=== PATIENT | female | born 2000 | race Caucasian/White ===

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

== ENCOUNTER 2019-06-25 14:20 | Emergency (ER) | payer OTHER ==
[~2019-06-25] VITALS: Ht 160 cm; Wt 63.0 kg
== END 2019-06-25 14:43 | disposition left against medical advice (07) ==
LOC: ED 14:20
DX: T39.1X1A Poisoning by 4-Aminophenol derivatives, accidental (unintentional), initial encounter (principal); R45.83 Excessive crying of child, adolescent or adult

== ENCOUNTER 2019-07-03 13:00 | Emergency (ER) | payer OTHER ==
[~2019-07-03] VITALS: Wt 54.4 kg
--- NOTE | ~2019-07-03 | EKG ---
[place], [place] ELECTROCARDIOGRAM REPORT NAME: DAYSI GUZMAN UNIT #: [id number] ROOM: DOCTOR: EPIPHANY DRAFT REPORT BIRTHDATE: [birth year] [facility] Test Date: 2019-07-03 Test Time: 13:18:56 Pat Name: DAYSI GUZMAN Department: Room: Gender: F [employer]: : 2000 Requested By: DANIEL JOHNSON Order Number: [id number] Reading MD: Ancelmo Miller MD Measurements Intervals Longs Rate: 89 P: 73 TN: 151 QRS: 36 QRSD: 113 T: 31 QT: 422 QTc: 514 Interpretive Statements Sinus rhythm Borderline intraventricular conduction delay Borderline ST depression, diffuse leads Prolonged QT interval No previous ECG available for comparison Electronically Signed On 07-04-2019 15:46:31 PDT by Ancelmo Miller MD CM:EKGRPT:ELECTROCARDIOGRAM REPORT [id number] DANIEL JOHNSON MD EPIPHANY DRAFT REPORT DANIEL JOHNSON MD
[2019-07-03 13:22] LABS: HEMATOCRIT 31.6 % (37.0-47.0); HEMOGLOBIN 9.5 g/dl (12.0-16.0); MEAN CELL VOLUME 93.2 fl (81.0-99.0); MEAN CORPUSCULAR HGB CONC 30.1 g/dl (33.0-37.0); NUCLEATED RED BLOOD CELL 0.1 10*3/uL (0.0-0.0); NUCLEATED RED BLOOD CELL 0.4 % (0.0-0.0); PLATELET COUNT AUTOMATED 326 10*3/uL (130-400); RED BLOOD COUNT 3.39 10*6/uL (4.10-5.10); RED CELL DISTRI WIDTH 13.9 % (0-14.5)
[2019-07-03 13:36] LABS: ACT PARTIAL THROMBO TIME 41.6 SECONDS (20.0-32.1); INTERNATIONAL NORM RATIO 1.2 (2.0-3.5)
[2019-07-03 13:39] LABS: ALBUMIN 2.2 gm/dl (3.1-4.5); ALKALINE PHOSPHATASE 84 U/L (45-117); BUN 10 mg/dl (7-24); CHLORIDE 108 mmol/L (98-107); CPK 455 U/L (26-192); CREATININE 1.16 mg/dL (0.55-1.02); POTASSIUM 4.1 mmol/L (3.5-5.1); SODIUM 143 mmol/L (136-145); TOTAL PROTEIN 6.1 gm/dL (6.4-8.2)
[2019-07-03 13:50] LABS: PLATELET SUFFICIENCY NORMAL (NORMAL); TOTAL CELLS COUNTED 100 #CELLS
[2019-07-03 13:54] LABS: TROPONIN I 0.028 ng/ml (<0.045)
[2019-07-03 14:41] LABS: ABG O2 SATURATION 98.3 % (95-97); ARTERIAL BLOOD GAS PCO2 42.1 mmHg (35-45)
[2019-07-03 14:42] LABS: ETHYL ALCOHOL < 3.0 mg/dl (<3); SGOT/AST 9333 IU/L (3-35); SGPT/ALT 5684 U/L (12-78)
[2019-07-03 14:42] LABS: ABG BASE EXCESS -20.6 mmol/L (-2.0-2.0); ARTERIAL BLOOD GAS PH 6.991 (7.35-7.45)
[2019-07-03 14:50] LABS: BILIRUBIN NEGATIVE (NEGATIVE); BLOOD 2+ (NEGATIVE); CLARITY SL CLOUDY (CLEAR); COLOR YELLOW (YELLOW); GLUCOSE 1+ (NEGATIVE); KETONE NEGATIVE (NEGATIVE); LEUKO ESTERASE NEGATIVE (NEGATIVE); NITRITE NEGATIVE (NEGATIVE); SPECIFIC GRAVITY 1.025 (1.005-1.030); UROBILINOGEN 0.2 E.U./dl (0.2-1.0)
[2019-07-03 14:58] LABS: URINE AMPHETAMINES < 1000 (1000ng/ml); URINE BARBITURATES < 200 (200ng/ml); URINE BENZODIAZEPINES < 200 (200ng/ml); URINE CANNABINOIDS (THC) < 50 (50ng/ml); URINE COCAINE < 300 (300ng/ml); URINE METHADONE < 300 (300ng/ml); URINE OPIATES < 300 (300ng/ml)
[2019-07-03 15:00] LABS: URINE PHENCYCLIDINE < 25 (25ng/ml)
[2019-07-03 15:09] LABS: BACTERIA 3+; RBC TNTC rbc/hpf (0-2); WBC 21-30 wbc/hpf (0-5)
[2019-07-03 16:38] LABS: ABG HCO3 9.8 mmol/l (22-26); ABG O2 SATURATION 97.5 % (95-97); ARTERIAL BLOOD GAS PCO2 32.1 mmHg (35-45)
[2019-07-03 16:51] LABS: ABG BASE EXCESS -19.6 mmol/L (-2.0-2.0); ARTERIAL BLOOD GAS PH 7.1 (7.35-7.45)
== END 2019-07-04 01:09 | disposition short-term general hospital (02) ==
LOC: ED 13:01
PROVIDERS: Emergency Medicine
DX: O36.4XX0 Maternal care for intrauterine death, not applicable or unspecified (principal); O9A.212 Injury, poisoning and certain other consequences of external causes complicating pregnancy, second trimester; O26.612 Liver and biliary tract disorders in pregnancy, second trimester; O99.512 Diseases of the respiratory system complicating pregnancy, second trimester; O99.412 Diseases of the circulatory system complicating pregnancy, second trimester; O21.9 Vomiting of pregnancy, unspecified; T50.901A Poisoning by unspecified drugs, medicaments and biological substances, accidental (unintentional), initial encounter; T17.900A Unspecified foreign body in respiratory tract, part unspecified causing asphyxiation, initial encounter; J80 Acute respiratory distress syndrome; I46.9 Cardiac arrest, cause unspecified; K72.00 Acute and subacute hepatic failure without coma; Z3A.19 19 weeks gestation of pregnancy; Y92.89 Other specified places as the place of occurrence of the external cause; X58.XXXA Exposure to other specified factors, initial encounter; Y93.89 Activity, other specified; Y99.8 Other external cause status